=== PATIENT | male | born 2000 ===

== ENCOUNTER 2024-06-29 17:12 | Emergency (ER) | payer SELFPAY ==
[2024-06-29 17:14] VITALS: BP 132/77; PULSE 85; RESP 16; TEMP 36.3; O2SAT 98; BMI 33.5
--- NOTE | 2024-06-29 21:00 | ED.RN ---
Pt's name called for room placement without evidence of pt still here. Assumed LWBS.
--- NOTE | 2024-06-29 21:08 | ED.RN ---
CALLED AT 2100 TO BE ROOMED IN 1 FOR ED. NAME CALLED MULTIPLE TIMES AND NOT FOUND IN ED WAITING ROOM OR HALLWAY
== END 2024-06-29 21:00 | disposition left against medical advice (07) ==
LOC: ED 21:14
DX: Z04.1 Encounter for examination and observation following transport accident (principal)